=== PATIENT | female | born 1980 | race Caucasian/White ===

== ENCOUNTER 2022-06-17 13:26 | Emergency (ER) | payer OTHER, SELFPAY ==
[2022-06-17] VITALS (21 sets, daily range): BP systolic 121–138; BP diastolic 65–103; PULSE 81–112; RESP 16–20; TEMP 36.2; O2SAT 97–100; BMI 34.1
--- NOTE | 2022-06-17 14:41 | CRLHL7_ITS ---
For Patients: As a result of the Century Cures Act, medical imaging exams and procedure reports are released immediately into your electronic medical record. You may view this report before your referring provider. If you have questions, please contact your health care provider. INDICATION: Heavy vaginal bleeding TECHNIQUE: Ultrasound pelvis transvaginal for better assessment or to better visualize the endometrium. Real-time sonographic images with spectral and color Doppler imaging of the ovaries were obtained. COMPARISON: None FINDINGS: Uterus: 10.5 x 4 x 5.7 cm. Normal echotexture of the myometrium. No masses. Endometrium: Transvaginal imaging was performed to better evaluate the endometrium. Endometrial thickness measures 19 mm. Focal heterogeneous area in the lower uterine segment measuring 3.6 cm, possibly a blood clot. Right ovary measures 3.1 x 1.4 x 1.4 cm and left ovary measures 2.1 x 1.5 x 2 cm. Hypoechoic round focus with peripheral blood flow in the right ovary measuring 3.1 cm likely a corpus luteal cyst. Normal arterial and venous blood flow is demonstrated in both ovaries. Cul-de-sac: No significant free fluid. IMPRESSION: Thickened endometrium. Focal heterogeneous area in the lower uterine segment possibly a blood clot. Right corpus luteal cyst. Dictated by Sanjeev Alvarez MD @ 06/17/2022 4:36:42 PM (Electronically Signed)
--- NOTE | 2022-06-17 14:43 | ED_ITS ---
HPI - General Adult General Chief complaint: Vaginal Bleeding Stated complaint: Heavy vaginal bleeding Time Seen by Provider: 06/17/22 14:22 Source: patient Mode of arrival: ambulatory Limitations: no limitations History of Present Illness HPI narrative: 42-year-old female presents to the ED with a 5 day history of heavy vaginal bleeding. Her last menstrual period that was regular was April 24. She had some spotting last week but starting Monday which is 5 days ago she started having heavy bleeding which is getting progressively worse and is now passing golf ball to plum size blood clots, soaking through a pad every 1/2 hour. She is feeling dizzy, lightheaded especially with any exertion in position changes. She has never had these type of symptoms before. She is not on any type of contraception but she does not think she could be . No new partners or symptoms of STDs. No pain. There is no chest pain or shortness of breath at rest but has exertional symptoms as described above. No prior cardiac history. She does not take any anticoagulants, no prior history of DVT or PE. She does not even use aspirin. No history of any gynecological issues. Surgically, she has had 1 prior . Nonsmoker. No abdominal trauma. No fevers. Past medical history notable for fibromyalgia and depression. Home meds are Lyrica and duloxetine. Only surgical history is the as stated above and was some tooth extraction. [facility] provider is at [facility]. Socially nonsmoker, noted as above. Family history negative urge gynecological cancers. ROS notable for the gynecological symptoms and generalized symptoms as above, otherwise denies times 12 systems. Related Data Home Medications Medication Instructions Recorded Confirmed duloxetine 60 mg capsule,delayed 120 mg PO DAILY 06/17/22 06/17/22 release magnesium glycinate 100 mg tablet 100 mg PO DAILY 06/17/22 06/17/22 (Mag Glycinate) naltrexone 50 mg tablet 50 mg PO DAILY 06/17/22 06/17/22 [id number]-epa-fish oil-vit D3 cap PO 06/17/22 350 mg-400 mg-1,000 unit capsule pregabalin 200 mg capsule (Lyrica) 200 mg PO BID 06/17/22 06/17/22 Allergies Allergy/AdvReac Type Severity Reaction Status Date / Time cats Allergy Intermediate Uncoded 06/17/22 13:51 dairy Allergy Intermediate Uncoded 06/17/22 13:51 PFSH PFSH Social History Smoking Status: Never smoker Do you use any of these nicotine containing products: E-Cigarettes How often do you have a drink containing alcohol: 4 or more times a week How many standard drinks containing alcohol do you have on a typical day: 1 or 2 How often do you have six or more drinks on one occasion: Never AUDIT-C Alcohol total score: 4 Non-prescribed substance use: marijuana (any form) Non-prescribed substance use details: Medical marijuana service: No Exam Const: Vital Signs, click to edit/add: Vital Signs - 24 hr 06/17/22 13:53 06/17/22 14:29 06/17/22 14:13 Temperature 97.2 F L Pulse Rate Pulse Rate [Right Pulse Oximeter] 112 H 91 104 H Respiratory Rate 16 20 Blood Pressure Blood Pressure [Le ft Upper Arm] 129/69 Blood Pressure [Ri ght Upper Arm] 132/80 133/90 H Pulse Oximetry 99 100 99 Oxygen Delivery Me thod Room Air Room Air 06/17/22 15:03 06/17/22 15:32 06/17/22 14:35 Temperature Pulse Rate 88 Pulse Rate [Right Pulse Oximeter] 90 92 Respiratory Rate 18 18 Blood Pressure Blood Pressure [Le ft Upper Arm] 138/80 121/103 H Blood Pressure [Ri ght Upper Arm] Pulse Oximetry 100 98 Oxygen Delivery Me thod Room Air Room Air 06/17/22 14:45 06/17/22 15:00 06/17/22 15:04 Temperature Pulse Rate 95 95 86 Pulse Rate [Right Pulse Oximeter] Respiratory Rate Blood Pressure 138/80 Blood Pressure [Le ft Upper Arm] Blood Pressure [Ri ght Upper Arm] Pulse Oximetry 100 100 99 Oxygen Delivery Me thod 06/17/22 15:33 06/17/22 15:34 06/17/22 15:45 Temperature Pulse Rate 89 88 81 Pulse Rate [Right Pulse Oximeter] Respiratory Rate Blood Pressure 121/103 H Blood Pressure [Le ft Upper Arm] Blood Pressure [Ri ght Upper Arm] Pulse Oximetry 100 99 99 Oxygen Delivery Me thod 06/17/22 16:00 06/17/22 16:02 06/17/22 16:15 Temperature Pulse Rate 85 82 82 Pulse Rate [Right Pulse Oximeter] Respiratory Rate Blood Pressure 128/83 Blood Pressure [Le ft Upper Arm] Blood Pressure [Ri ght Upper Arm] Pulse Oximetry 97 98 97 Oxygen Delivery Me thod 06/17/22 16:30 06/17/22 16:32 06/17/22 16:45 Temperature Pulse Rate 86 84 84 Pulse Rate [Right Pulse Oximeter] Respiratory Rate Blood Pressure 131/65 Blood Pressure [Le ft Upper Arm] Blood Pressure [Ri ght Upper Arm] Pulse Oximetry 97 100 97 Oxygen Delivery Me thod 06/17/22 17:00 06/17/22 17:02 Temperature Pulse Rate 87 90 Pulse Rate [Right Pulse Oximeter] Respiratory Rate Blood Pressure 124/84 Blood Pressure [Le ft Upper Arm] Blood Pressure [Ri ght Upper Arm] Pulse Oximetry 98 98 Oxygen Delivery Me thod Documenting provider has reviewed patient's vital signs: yes Common normals: no apparent distress General appearance: cooperative, comfortable and well kempt Other: Excellent historian, polite. Appears pale. HENMT: Common normals: normocephalic Head and scalp: normocephalic Face and sinus: normal facial exam Mouth: oral and palatal mucosa normal Th roat: posterior oropharynx normal Eye: Common normals: conjunctivae normal General eye: normal appearance of both eyes Conjunctiva: conjunctiva(e) normal Neck & C-Spine: Common normals: full ROM and no lymphadenopathy Resp: Common normals: normal respiratory effort, no use of accessory muscles, clear to auscultation bilaterally and percussion normal Effort & inspection: able to speak in complete sentences Auscultation: clear to auscultation bilaterally Percussion: percussion normal Cardio: Common normals: regular rate, regular rhythm, S1 normal heart sound, S2 normal heart sound, no murmurs and peripheral pulses 2+ throughout Rate: regular rate Rhythm: regular rhythm Heart sounds: S1 normal and S2 normal Peripheral pulses: pulses 2+ throughout GI: Common normals: Normal to inspection, nondistended, normoactive bowel sounds present, soft to palpation, non-tender, no hepatosplenomegaly and no masses Palpation: soft and no hepatosplenomegaly : Other: Normal external genitalia, normal vaginal mucosa. Golf ball sized blood clot with no evidence of feel tissue or foreign body in vaginal vault. Cervix is closed behind it. Bimanual exam shows uterus is enlarged, like a 8-10 weeks gestational size but is nontender. No unusual discharge. Extremity: Common normals: normal to inspection, normal capillary refill and no pedal edema Neuro: Common normals: moves all extremities and no focal motor deficits Speech: speech normal Psych: Appearance: well kempt Activity/motor behavior: appropriate eye contact Mood and affect: euthymic mood Insight: insight good Judgement: judgment good Skin: Common normals: no rashes or lesions noted General skin exam: no rashes or lesions noted Course Vital Signs Vital signs: Initial Vital Signs Temperature 97.2 F L 06/17/22 13:53 Temperature Source Temporal Artery Scan 06/17/22 13:53 Pulse Rate 112 H 06/17/22 13:53 Respiratory Rate 16 06/17/22 13:53 Blood Pressure 132/80 06/17/22 13:53 Blood Pressure Mean 97 06/17/22 13:53 Pulse Oximetry 99 06/17/22 13:53 Oxygen Delivery Method Room Air 06/17/22 13:53 Vital Signs Temperature 97.2 F L 06/17/22 13:53 Pulse Rate 112 H 06/17/22 13:53 Respiratory Rate 16 06/17/22 13:53 Blood Pressure 132/80 06/17/22 13:53 Pulse Oximetry 99 06/17/22 13:53 Oxygen Delivery Method Room Air 06/17/22 13:53 Temperature 97.2 F L 06/17/22 13:53 Pulse Rate 90 06/17/22 17:02 Respiratory Rate 18 06/17/22 15:32 Blood Pressure 124/84 06/17/22 17:02 Pulse Oximetry 98 06/17/22 17:02 Oxygen Delivery Method Room Air 06/17/22 15:32 Medical Decision Making MDM Narrative Medical decision making narrative: Abnormal uterine bleeding. Low risk for but test is pending. Suspect fibroid, dysfunctional uterine bleeding, cannot exclude malignancy, polyp or other abnormality. I am concerned with acute blood loss anemia and will start normal saline, obtain typical screening labs, pelvic ultrasound. Once results available, will consult Ob provider. Update: Fairly high hCG but reassuring ultrasound. Her bleeding has slowed considerably now and I do think that she may have been passing most of the contents here in our ED. reviewed with Ob provider on-call. At this time, we are planning to discharge her home with instructions on management of pain with Tylenol and ibuprofen, follow-up with primary care in 1-2 weeks to recheck hCG levels, discussed contraception and ensure that the bleeding has stopped as expected. Any symptoms of infection or severe bleeding would warrant repeat ER visit. Lab Data Lab results reviewed: Yes I reviewed the patient's lab results Lab results narrative: The positive hCG was certainly a surprise. Labs: Lab Results 06/17/22 06/17/22 Range/Units 15:00 15:00 WBC 9.89 (4.50-11.00) K/uL RBC 3.99 L (4.00-5.20) m/uL Hgb 11.1 L (12.0-16.0) gm/dL Hct 34.5 (33.0-51.0) % MCV 87 (80-100) fL MCH 28 (26-34) pg MCHC 32 (32-36) gm/dL RDW Coeff of Livan 18.5 H (11.5-15.5) % Plt Count 351 (140-440) K/uL Neut % (Auto) 68.0 (42.0-72.0) % Lymph % (Auto) 21.0 (20-44) % [place] % (Auto) 7.9 (0.0-11.0) % Eos % (Auto) 2.6 (0.0-7.0) % Baso % (Auto) 0.3 (0.0-3.0) % Neut # (Auto) 6.72 (1.7-7.0) K/uL Lymph # (Auto) 2.08 (0.90-2.90) K/uL [place] # (Auto) 0.80 (0.00-0.90) K/UL Eos # (Auto) 0.26 (0.00-0.50) K/uL Baso # (Auto) 0.03 (0.00-0.30) K/uL INR 0.90 L (0.91-1.10) Sodium 133 L (135-149) mmol/L Potassium 4.0 (3.6-5.1) mmol/L Chloride 100 (96-114) mmol/L Carbon Dioxide 25 (20-32) mmol/L BUN 11 (5-24) mg/dL Creatinine 0.6 (0.5-1.5) mg/dL Estimated Creat Clear 112.15 Estimated GFR 116 ml/min Glucose 85 (60-115) mg/dL Calcium 9.0 (8.4-10.6) mg/dL TSH 0.384 (0.270-4.200) uIU/mL HCG, Qual Cancelled Positive HCG, Quant 31109.00 mIU/mL Imaging Data US - abdomen: Attestation: I have reviewed the pertinent imaging results. Radiologist's impression: IMPRESSION: Thickened endometrium. Focal heterogeneous area in the lower uterine segment possibly a blood clot. Right corpus luteal cyst. Discharge Plan Discharge Clinical Impression: Miscarriage Patient Disposition: Home w/ Parent or Adult Condition: Improved Instructions: Miscarriage (ED) Additional Instructions: It looks like you have passed most of the miscarriage. The bleeding should start to slow down considerably now. Would like for you to take it easy this weekend, you may resume typical activity on Monday. We would like for you to follow-up with your primary care provider in 1-2 weeks to recheck a blood level and make sure that your hormone levels have fallen as expected and that you are feeling better. If you continue to have episodes of heavy bleeding especially if you are still very dizzy, lightheaded or short of breath, please come back to the emergency department. It is okay to take Tylenol and ibuprofen for cramping, but try to avoid aspirin. It would be a good idea to discuss control options with your primary care provider at your follow-up visit if you are not planning further . Activity Level: Activity as Tolerated Discharge Diet: Regular Prescriptions: No Action naltrexone 50 mg tablet 50 mg PO DAILY duloxetine 60 mg capsule,delayed release(DR/EC) 120 mg PO DAILY pregabalin [Lyrica] 200 mg capsule 200 mg PO BID nskha-2r-osh-epa-fish oil-D3 350 mg-400 mg- 1,000 unit capsule PO Mag Glycinate 100 mg tablet 100 mg PO DAILY Follow Up/Referrals: Leonidas Zhou DO [Referring] - Stand Alone Forms: H?RELealth Info Instructions
[2022-06-17] MEDS: 0.9 % SODIUM CHLORIDE 1000 ml 1,000 ML IV (15:04)
[2022-06-17 15:11] LABS: Basophils Absolute Auto 0.03 K/uL (0.00-0.30); Basophils Percent Auto 0.3 % (0.0-3.0); Eosinophils Absolute Auto 0.26 K/uL (0.00-0.50); Eosinophils Percent Auto 2.6 % (0.0-7.0); Hematocrit 34.5 % (33.0-51.0); Hemoglobin* 11.1 gm/dL (12.0-16.0); Immature Granulocytes Abs Auto 0.02 K/uL (0.00-0.30); Immature Granulocytes Pct Auto 0.2 %; Lymphocytes Absolute Auto 2.08 K/uL (0.90-2.90); Mean Corpuscular HGB Conc 32 gm/dL (32-36); Mean Corpuscular Hemoglobin 28 pg (26-34); Mean Corpuscular Volume 87 fL (80-100); Monocytes Percent Auto 7.9 % (0.0-11.0); Neutrophils Absolute Auto 6.72 K/uL (1.7-7.0); Platelet Count* 351 K/uL (140-440); RDW Coefficient of Variation % 18.5 % (11.5-15.5); Red Blood Count 3.99 m/uL (4.00-5.20); White Blood Count* 9.89 K/uL (4.50-11.00)
[2022-06-17 15:15] LABS: Slide Review Reflex No
[2022-06-17 15:28] LABS: Prothrombin Time 12.7 Seconds
[2022-06-17 15:29] LABS: Chloride* 100 mmol/L (96-114); Sodium* 133 mmol/L (135-149)
[2022-06-17 15:32] LABS: Creatinine* 0.6 mg/dL (0.5-1.5); Est. Creatinine Clearance* 112.15; Estimated Glomerular Filt Rate 116 ml/min
[2022-06-17 15:33] LABS: Blood Urea Nitrogen* 11 mg/dL (5-24); Carbon Dioxide* 25 mmol/L (20-32); Glucose* 85 mg/dL (60-115)
--- NOTE | 2022-06-17 15:37 | ED.NURSE ---
did change a saturated zaina pad in u/s. is getting 1000 ns as ordered.
[2022-06-17 15:50] LABS: HCG Qualitative Serum* Positive (Negative)
[2022-06-17 16:25] LABS: TSH With Reflex to FT4* 0.384 uIU/mL (0.270-4.200)
[2022-06-17] MEDS: IBUPROFEN 200 MG TABLET 600 MG PO (16:29)
--- NOTE | 2022-06-17 17:14 | ED.NURSE ---
s/o is here. is aware that Emiliana is NPO. home staging specialist has been consulted. dr paez will be in to see.
--- NOTE | 2022-06-17 17:30 | ED.NURSE ---
up to br to void. did sat 1 ob pad with passing a clot ~50 cent piece, pad changed. steady on feet. dr ocampo was in to explain findings.
--- NOTE | 2022-06-17 18:14 | ED.NURSE ---
did pass stringy clot and sat pad. reports that she is bleeding less and feels that her body will take care of this and wants to go home. does not want a d&c. steady on feet.
--- NOTE | 2022-06-17 18:52 | P.GYNCN_ITS ---
HOROLOGIST - CN: HPI Data of Consult Time Seen by Provider: 17:30 Date Seen: 06/17/22 Patient: Jeromy Patient Consult date: 06/17/22 Requesting Physician: Henrique Brownlee MD Primary Care Provider: Tenisha Gallego MD. Jeromy Gold. Consult Narrative Reason for consult: vaginal bleeding Narrative: Emiliana Stapleton is a 42 year old 2 para 1011 who presented to the emergency department today after 5 days of heavy vaginal bleeding. She states that she had a normal menstrual cycle in March, did not have a menstrual cycle in April then approximately 1 week ago started having some spotting and thought it was her menstrual cycle starting. She started having heavy bleeding where she was passing golf-ball size clots and saturating a large menstrual sanitary pad in less than an hour. The bleeding became particularly heavy today and was passing several clots so came into the emergency room. She was accompanied by her boyfriend of 2 years: Zoltan. She states that she thought she could get because her son is 19 years old and she has not used control since he was born and did not conceive. She has not had an infertility evaluation. She states that she was fine with not having any more than 1 child. She and her boyfriend have been together for 2 years and have not used control that time. She did not have symptoms. Emiliana denies having significant cramping and denies feeling lightheaded or dizzy. She has been feeling fatigued this week. Denies chest pain and shortness of breath. Her hemoglobin on admission was 11.1. INR 0.9. Her basic metabolic panel was normal except for slightly low sodium at 1:33 a.m.. TSH was normal 0.384. Her urine test was positive by which she was very surprised and beta HCG was 10,919. These labs were performed at approximately 3:00 p.m. She had a pelvic ultrasound before her test and beta HCG level returned which showed a trilaminar endometrium measuring 1.9 cm and a 3.6 x 3 cm heterogenous mass or blood clot within the lower uterine segment/cervix. The official report showed uterus measuring 10.5 x 4.0 x 5.7 cm. Normal echotexture of the myometrium without masses. The endometrium had a thickness of 19 mm focal heterogenous area in the lower uterine segment measuring 3.6 cm possibly a blood clot but after the beta HCG came back much more likely a miscarriage. The right ovary measures 3.1 x 1.4 x 1.4 cm. The left ovary measures 2.1 x 1.5 x 2.0 cm. There is a hypoechoic round focus with peripheral blood flow the right ovary measuring 3.1 cm consistent with a corpus luteum cyst. Normal arterial and venous blood flow in both ovaries by color Doppler analysis. The cul-de-sac shows no free fluid. After the ultrasound the patient reported passing 2 clots the size of the heterogenous mass described in the lower uterine segment on the ultrasound. She then describes her bleeding decreasing relatively quickly. I suspect she completed her miscarriage well she was in the emergency room. I briefly discussed suction dilation and curettage procedure with her in the event that she was continuing to have heavy bleeding on exam. cc:: CC: Tenisha Gallego MD [facility] Medical History (Updated 06/17/22 @ 19:02 by Shanelle Benoit MD) Depression with anxiety ?F41.8 - Other specified anxiety disorders (ICD-10) Fibromyalgia ?M79.7 - Fibromyalgia (ICD-10) Surgical History History of (~2003) ?Z98.891 - History of uterine scar from previous surgery (ICD-10) Social History Smoking Status: Never smoker Do you use any of these nicotine containing products: E-Cigarettes How often do you have a drink containing alcohol: 4 or more times a week How many standard drinks containing alcohol do you have on a typical day: 1 or 2 How often do you have six or more drinks on one occasion: Never AUDIT-C Alcohol total score: 4 Non-prescribed substance use: marijuana (any form) Non-prescribed substance use details: Medical marijuana service: No Meds Home Medications and Allergies Home Medications Medication Instructions Recorded Confirmed Type duloxetine 60 mg capsule,delayed 120 mg PO DAILY 06/17/22 06/17/22 History release magnesium glycinate 100 mg tablet 100 mg PO DAILY 06/17/22 06/17/22 History (Mag Glycinate) naltrexone 50 mg tablet 50 mg PO DAILY 06/17/22 06/17/22 History gsdgi-3m-aau-epa-fish oil-vit D3 cap PO 06/17/22 History 350 mg-400 mg-1,000 unit capsule pregabalin 200 mg capsule (Lyrica) 200 mg PO BID 06/17/22 06/17/22 History Allergies Allergy/AdvReac Type Severity Reaction Status Date / Time cats Allergy Intermediate Uncoded 06/17/22 13:51 dairy Allergy Intermediate Uncoded 06/17/22 13:51 HOROLOGIST - Exam Physical Exam: Vital signs: Temp Pulse Resp BP Pulse Ox O2 Del Method 97.2 F L 94 18 124/84 97 Room Air 06/17/22 13:53 06/17/22 17:03 06/17/22 15:32 06/17/22 17:02 06/17/22 17:03 06/17/22 15:32 Narrative: General: Pleasant, , well groomed woman in no acute distress. Vital signs: Included in her medical record: Blood pressure 124/84 pulse 94 respiratory rate 18 temperature 97.2? F O2 saturation 97% on room air. Abdomen: Soft, nontender, nondistended with normal bowel sounds throughout. No CVA or flank tenderness. Pelvic: External genitalia, urethral meatus, [place]'s and [place]th[place]'s glands appear normal. There is minimal bleeding on pelvic exam. A small clot less than dime size was removed from the vaginal canal. The cervix was slightly dilated to 0.5 cm. Uterus was nontender and mobile less than 10 week size. Extremities: No pain or edema. HOROLOGIST - Results Labs Labs: Short CBC 06/17/22 Range/Units 15:00 WBC 9.89 (4.50-11.00) K/uL Hgb 11.1 L (12.0-16.0) gm/dL Hct 34.5 (33.0-51.0) % Plt Count 351 (140-440) K/uL BMP 06/17/22 15:00 Sodium 133 L Potassium 4.0 Chloride 100 Carbon Dioxide 25 BUN 11 Creatinine 0.6 Glucose 85 Calcium 9.0 Assessment and Plan Assessment and plan (1) Miscarriage: Status: Acute Plan 1. I believe the patient completed the miscarriage while she was in the emergency department. 2. Her bleeding slowed significantly over the course of her emergency department stay. 3. I recommended that she follow-up with her primary care provider: Dr. Tenisha Gallego is in 2 weeks. 4. I recommended that she return to the emergency department immediately if she is saturating a full-size maxi pad in less than an hour or begins passing golf- ball size clots again. 5. I a reviewed my recommendations with Dr. Brownlee and the [facility] in stable condition.
== END 2022-06-17 18:28 | disposition home or self-care (01) ==
PROVIDERS: Emergency Provider Family Medicine
DX: O03.9 Complete or unspecified spontaneous abortion without complication (principal)
CPT/HCPCS: 36415; 76830; 80048; 84443; 84702; 84703; 85025; 85610; 99283; 99284; A9270; J7030